=== PATIENT | male | born 1950 | race Caucasian/White ===

== ENCOUNTER → 2017-04-30 | Outpatient (REF) ==
[~2017-04-30] MED LIST: FLU60SYR30 IM ONLY; GLIP-154 PO; IBUP200C71 PO; INSU100I5 SC; LEVI SUBQ; LOSA100T67 PO; METF-420 PO; PIOG30TA34 PO; PNEI IJ; PNEU0.5D3 IM; PRAV20TA66 PO; PRAV40TA78 PO; [UNRECOGNIZED DRUG - CODE] SC
--- NOTE | 2017-04-30 10:29 | RADIOLOGY IMAGING REPORT ---
FACILITY: [facility] PATIENT NAME: Daniel Magaña : 1950 MR: [id number] V: [id number] EXAM DATE: ORDERING PHYSICIAN: ERICA MIN TECHNOLOGIST: Location: [facility] [place] Patient: Daniel Magaña : 1950 Visit/Account:[id number] Date of Sevice: 04/30/2017 CHEST SINGLE AP COMPARISONS: Single view chest dated April 11, 2016 ADDITIONAL PERTINENT HISTORY: Preemployment physical. FINDINGS: Cardiomediastinal silhouette: Negative. Pulmonary vasculature: Negative. Lung underwood: Negative. Pleural spaces: Negative. Osseous structures: Negative. Surrounding soft tissues: Negative. IMPRESSION: No evidence of acute cardiopulmonary disease. Report Dictated By: Amanuel Sandoval MD at 04/30/2017 10:22 AM Report E-Signed By: Amanuel Sandoval MD at 04/30/2017 10:25 AM WSN:[email or web address]
== END ==
LOC: RAD 10:03
PROVIDERS: ATTEND Physician Assistant Medical
DX: Z02.1 Encounter for pre-employment examination (principal)
CPT/HCPCS: 71045

== ENCOUNTER → 2018-04-10 | Outpatient (REF) ==
[~2018-04-10] MED LIST changes: +FLUT16SP19 NS; +IBUP-136 PO; -IBUP200C71 PO; -LOSA100T67 PO; +LOSA100T75 PO; -METF-420 PO; +METF-452 PO; +PANT40TA65 PO
--- NOTE | 2018-04-10 11:19 | RADIOLOGY IMAGING REPORT ---
FACILITY: [facility] PATIENT NAME: Daniel Magaña : 1950 MR: [id number] V: [id number] EXAM DATE: ORDERING PHYSICIAN: EMERITA HINES TECHNOLOGIST: Location: [facility] - [place] Patient: Daniel Magaña : 1950 Visit/Account:[id number] Date of Sevice: 04/10/2018 Exam type: CHEST SINGLE AP History: Annual physical Comparison: April 30, 2017. Findings: The lungs are free of acute effusions, infiltrates or edema. No evidence of a pneumothorax or pneumo mediastinum. The cardiac silhouette is normal in size. The trachea is midline. Visualized bones ar e unremarkable for age IMPRESSION: 1. No acute cardiopulmonary process is seen Report Dictated By: Janee Lorenz MD at 04/10/2018 11:13 AM Report E-Signed By: Janee Lorenz MD at 04/10/2018 11:14 AM WSN:[email or web address]
== END ==
LOC: RAD 10:15
PROVIDERS: ATTEND Family Medicine
DX: Z00.00 Encounter for general adult medical examination without abnormal findings (principal)
CPT/HCPCS: 71045